=== PATIENT | female | born 1955 | race Caucasian/White ===

== ENCOUNTER 2022-01-27 11:58 | Inpatient (IN) ==
[~2022-01-27 11:58] MED LIST: DEXTROSE 10% 250 ML BAG IV PRN; GLUCAGON 1 MG VIAL IM PRN
[2022-01-27] MEDS ORDERED: CLORAZEPATE 3.75 MG TABLET PO PRN (12:38)
[2022-01-27 14:13] LABS: Basophils % 0.4 % (0.0-0.8); Eosinophils # 0.3 10*3/uL (0.0-0.87); Eosinophils % 2.5 % (0.00-10.9); Hematocrit 41.8 VOL% (35.7-47.0); Hemoglobin 13.8 GM/DL (12.0-16.0); Immature Granulocytes % 0.1 %; Immature Granulocytes Absolute 0.01 #; Lymphocytes # 4.4 10*3/uL (1.4-4.0); Lymphocytes % 43.7 % (21.3-54.2); Mean Platelet Volume 11.8 FL (9.6-12.0); Monocytes # 0.5 10*3/uL (0.11-0.8); Monocytes % 5.4 % (1.7-12.7); Neutrophils % 47.9 % (38.7-73.9); Platelet Count 187 T/CUMM (130-400); Red Blood Count 4.31 MC/CUMM (3.8-5.5); Red Cell Distribution Width 12.8 % (9.3-17.3)
[2022-01-27 14:33] LABS: Albumin 3.7 G/DL (3.4-5.0); Bilirubin,Total 0.4 MG/DL (0.20-1.00); Calcium 9.2 MG/DL (8.5-10.1); Osmolality,Calculated 279.5 MOS/KG (273-304); Potassium 3.9 MMOL/L (3.5-5.1); Total Protein 8.7 G/DL (6.4-8.2)
[2022-01-27 14:50] LABS: Platelet Estimate Adequate
[2022-01-27] MEDS: CHLORHEXIDINE 4% SOLN 118 ML BOTTLE TOP SCH ×2 (15:10→21:16)
[2022-01-27 15:17] LABS: Arterial Base Excess iSTAT 2 MMOL/L (-2.5-2.5); Arterial Bicarbonate iSTAT 26.4 MMOL/L (20-26); Arterial O2 Saturation iSTAT 96 % (95-100); Arterial PCO2 iSTAT 40 MM HG (35-48); Arterial PO2 iSTAT 79 MM HG (80-95); Arterial Total CO2 iSTAT 28 MMO/L (23-27); Arterial pH iSTAT 7.433 (7.35-7.45)
[2022-01-27] MEDS: SODIUM CHLORIDE 0.9% 1,000 ML IV SCH (15:44)
[2022-01-27] MEDS ORDERED: diphenhydrAMINE CAP 25 MG CAPSULE PO PRN (20:45)
[2022-01-27] MEDS: CHLORHEXIDINE 0.12% ORAL RINSE 60 ML BOTTLE SWISH/SPIT SCH (21:14)
[2022-01-28] MEDS ORDERED: VANCOMYCIN 1,000 MG VIAL ONE (04:14)
[2022-01-28] MEDS ORDERED: PAPAVERINE 60 MG/2 ML VIAL ONE (04:14)
[2022-01-28] MEDS ORDERED: VANCOMYCIN 500 MG VIAL ONE (04:14)
[2022-01-28] MEDS ORDERED: DIAZEPAM 5 MG TABLET PO ONE (05:30)
[2022-01-28] MEDS ORDERED: FAMOTIDINE 20 MG TABLET PO ONE (05:30)
[2022-01-28] MEDS ORDERED: MIDAZOLAM 10 MG/2 ML VIAL ONE ×4 (05:40→09:36)
[2022-01-28] MEDS ORDERED: SUFentanil 250 MCG/5 ML AMP ONE ×4 (05:41→05:42)
[2022-01-28] MEDS: CHLORHEXIDINE 4% SOLN 118 ML BOTTLE TOP SCH (05:49)
[2022-01-28] MEDS ORDERED: VECURONIUM 10 MG VIAL IV ONE ×3 (05:55→09:36)
[2022-01-28] MEDS ORDERED: ETOMIDATE 40 MG/20 ML VIAL IV ONE (05:55)
[2022-01-28] MEDS ORDERED: SODIUM CHLORIDE 0.9% 0 ML IV ONE (05:55)
[2022-01-28] MEDS ORDERED: SEVOFLURANE 1 UNIT/15 MINUTE INH ONE ×5 (05:55→10:42)
[2022-01-28] MEDS ORDERED: SODIUM CHLORIDE 0.9% 100 ML IV ONE ×2 (05:55→10:41)
[2022-01-28] MEDS ORDERED: LIDOCAINE 2% 5 ML VIAL ONE ×2 (05:55→10:42)
[2022-01-28] MEDS ORDERED: PHENYLEPHRINE DRIP 20 MG/250 ML PREMIX IV ONE (05:55)
[2022-01-28] MEDS ORDERED: PHENYLEPHRINE 1 MG/10 ML SYRINGE IV ONE (05:55)
[2022-01-28] MEDS ORDERED: CEFUROXIME INJ 1,500 MG in SODIUM CHLORIDE 0.9% 100 ML IV ONE (06:00)
[2022-01-28] MEDS ORDERED: EPINEPHrine 1 MG/ML VIAL ONE (06:04)
[2022-01-28] MEDS ORDERED: MINERAL OIL/PETROLATUM OPH OINT 3.5 GM TUBE ONE (06:06)
[2022-01-28] MEDS ORDERED: ePHEDrine 50 MG/ML VIAL ONE (07:17)
[2022-01-28] MEDS ORDERED: LIDOCAINE 100 MG/5 ML SYRINGE ONE (07:30)
[2022-01-28] MEDS ORDERED: ATROPINE 1 MG/10 ML SYRINGE ONE (07:30)
[2022-01-28] MEDS ORDERED: EPINEPHrine 1 MG/10 ML SYRINGE ONE (07:30)
[2022-01-28] MEDS ORDERED: SODIUM BICARBONATE 50 MEQ/50 ML SYRINGE IV ONE (07:31)
[2022-01-28] MEDS ORDERED: CALCIUM CHLORIDE 1,000 MG/10 ML SYRINGE IV ONE (07:32)
[2022-01-28] MEDS ORDERED: PHENYLEPHRINE DRIP 40 MG/250 ML PREMIX IV ONE (07:32)
[2022-01-28] MEDS ORDERED: POTASSIUM CHLORIDE RIDER 20 MEQ/100 ML PREMIX IV ONE (07:32)
[2022-01-28 07:34] LABS: ABG Base Excess 0.7 MMOL/L (-2.5-2.5); ABG HCO3 25.1 MMOL/L (20-26); ABG Oxygen Saturation 99.7 % (95-100); ABG PCO2 41.6 MM HG (35-48); ABG PH 7.398 (7.35-7.45); ABG TCO2 22.7 MMOL/L (23-27); Glucose Heart Surgery 120 MG/DL (74-106); Hematocrit Heart Surgery 36.5 PERCENT (37-47); Hemoglobin Heart Surgery 11.9 G/DL (12.0-16.0); Ionized Calcium Arterial 1.11 MMOL/L (1.21-1.46); PCO2 Patient Temp Arterial 41.6 MMHG; PH Patient Temp Arterial 7.398; Patient Temperature 37 CELCIUS; Sodium Heart/CVR 140 MMOL/L (135-145)
[2022-01-28 07:38] LABS: Bilirubin,Urine Negative (Negative); Blood, Urine Negative (Negative); Glucose,Urine (UA) Negative (Negative); Ketones,Urine Negative (Negative); Nitrite,Urine Negative (Negative); Protein,Urine Negative (Negative); Urine Appearance Clear (Clear); Urine Color Yellow (Yellow); Urine Urobilinogen 0.2 eU/dL (<2.0)
[2022-01-28 07:41] LABS: RBC,Urine 1 /HPF (0-4)
[2022-01-28] MEDS ORDERED: NITROPRUSSIDE 50 MG/2 ML VIAL ONE (07:49)
[2022-01-28] MEDS ORDERED: ALBUMIN 5% 12.5 GM/250 ML VIAL IV ONE ×2 (07:51→10:43)
[2022-01-28] MEDS ORDERED: SODIUM CHLORIDE 0.9% 250 ML IV ONE (08:13)
[2022-01-28] MEDS ORDERED: SODIUM CHLORIDE 0.9% 1,000 ML IV ONE ×2 (08:13→10:38)
[2022-01-28] MEDS ORDERED: LACTATED RINGERS 1,000 ML IV ONE ×2 (08:13→10:38)
[2022-01-28] MEDS ORDERED: HEPARIN/NACL 0.9% 2 UNITS/ML 1,000 UNIT/500 ML BAG IV ONE (08:14)
[2022-01-28 09:06] LABS: Hemoglobin Heart Surgery 7.7 G/DL (12.0-16.0); PCO2 Patient Temp Venous 38.4 MM HG; PH Patient Temp Venous 7.43; PO2 Patient Temp Venous 42.5 MM HG; VBG Base Excess 1.3 MEQ/L (0-4); VBG HCO3 25.4 MEQ/L (24-28); VBG Oxygen Saturation 82.7 %; VBG PCO2 42.3 MMHG (41-51); VBG PH 7.4; VBG PO2 48.8 MMHG (17-40); VBG Total CO2 24.6 MMOL/L
[2022-01-28 09:08] LABS: Potassium Heart/CVR 6.1 MMOL/L (3.5-5.1)
[2022-01-28 09:35] LABS: Hematocrit Heart Surgery 28.3 PERCENT (37-47); Hemoglobin Heart Surgery 9.1 G/DL (12.0-16.0); PCO2 Patient Temp Venous 38.9 MM HG; PH Patient Temp Venous 7.42; PO2 Patient Temp Venous 39.9 MM HG; Potassium Heart/CVR 6.3 MMOL/L (3.5-5.1); VBG HCO3 25.1 MEQ/L (24-28); VBG Oxygen Saturation 81.4 %; VBG PH 7.377; VBG Total CO2 24.5 MMOL/L
[2022-01-28] MEDS ORDERED: CALCIUM CHLORIDE 1,000 MG/10 ML VIAL IV ONE ×2 (10:17→11:14)
[2022-01-28] MEDS ORDERED: propofoL 200 MG/20 ML VIAL IV ONE (10:17)
[2022-01-28 10:19] LABS: ABG Base Excess -1.3 MMOL/L (-2.5-2.5); ABG HCO3 23.3 MMOL/L (20-26); ABG Oxygen Saturation 99.6 % (95-100); ABG PCO2 39.3 MM HG (35-48); ABG PH 7.385 (7.35-7.45); ABG TCO2 21.7 MMOL/L (23-27); Glucose Heart Surgery 264 MG/DL (74-106); Hematocrit Heart Surgery 27.8 PERCENT (37-47); Ionized Calcium Arterial 1.25 MMOL/L (1.21-1.46); PCO2 Patient Temp Arterial 39.3 MMHG; PH Patient Temp Arterial 7.385; Patient Temperature 37 CELCIUS; Potassium Heart/CVR 4.9 MMOL/L (3.5-5.1); Sodium Heart/CVR 135 MMOL/L (135-145)
[2022-01-28] MEDS ORDERED: MAGNESIUM SULFATE 5 GM/10 ML VIAL IV ONE (10:42)
[2022-01-28] MEDS ORDERED: DEXTROSE 5% KCL 20 MEQ 20 MEQ/1,000 ML BAG IV ONE (10:42)
[2022-01-28] MEDS ORDERED: ALBUMIN 25% 25 GM/100 ML VIAL IV ONE (10:42)
[2022-01-28] MEDS ORDERED: methylPREDNISolone SOD SUC 1,000 MG/8 ML VIAL ONE (10:42)
[2022-01-28] MEDS ORDERED: PROTAMINE SULFATE 250 MG/25 ML VIAL IV ONE (10:43)
[2022-01-28] MEDS ORDERED: HEPARIN 10,000 UNIT/10 ML VIAL ONE (10:43)
[2022-01-28] MEDS ORDERED: SODIUM BICARBONATE 50 MEQ/50 ML VIAL IV ONE (10:44)
[2022-01-28] MEDS ORDERED: MANNITOL 12.5 GM/50 ML VIAL IV ONE (10:44)
[2022-01-28] MEDS ORDERED: FUROSEMIDE 20 MG/2 ML VIAL ONE (10:44)
[2022-01-28] MEDS ORDERED: MIDAZOLAM 10 MG/2 ML VIAL IV PRN (11:52)
[2022-01-28] MEDS ORDERED: NITROPRUSSIDE 100 MG in DEXTROSE 5% 250 ML IV PRN (11:52)
[2022-01-28] MEDS ORDERED: MIDAZOLAM 2 MG/2 ML VIAL IV PRN (11:52)
[2022-01-28] MEDS ORDERED: MORPHINE 2 MG/1 ML SYRINGE IV PRN (11:52)
[2022-01-28] MEDS ORDERED: MAGNESIUM SULF RIDER 4 GM/100 ML PREMIX IV PRN (11:52)
[2022-01-28] MEDS ORDERED: MAGNESIUM SULF RIDER 2 GM/50 ML PREMIX IV PRN (11:52)
[2022-01-28] MEDS ORDERED: LACTATED RINGERS 250 ML IV PRN (11:52)
[2022-01-28] MEDS ORDERED: INSULIN REGULAR 100 UNIT/ML IV ONE (11:52)
[2022-01-28] MEDS ORDERED: ACETAMINOPHEN 650 MG SUPP RECTAL PRN (11:52)
[2022-01-28] MEDS ORDERED: CHLORHEXIDINE 4% SOLN 118 ML BOTTLE TOP PRN (11:52)
[2022-01-28] MEDS ORDERED: DEXTROSE 10% 250 ML BAG IV PRN ×2 (11:52)
[2022-01-28] MEDS ORDERED: VECURONIUM 10 MG VIAL IV PRN ×2 (11:52)
[2022-01-28] MEDS ORDERED: PHENYLEPHRINE DRIP 40 MG/250 ML PREMIX IV PRN (11:52)
[2022-01-28] MEDS ORDERED: ONDANSETRON 4 MG/2 ML VIAL IV PRN (11:52)
[2022-01-28] MEDS ORDERED: SODIUM CHLORIDE 0.45% 1,000 ML IV SCH ×2 (11:52)
[2022-01-28] MEDS ORDERED: INSULIN REGULAR 100 UNIT/ML IV PRN (11:52)
[2022-01-28] MEDS ORDERED: CALCIUM CHLORIDE 1,000 MG/10 ML SYRINGE IV PRN (11:52)
[2022-01-28] MEDS ORDERED: MORPHINE 10 MG/1 ML VIAL IV PRN (11:52)
[2022-01-28] MEDS ORDERED: POTASSIUM CHLORIDE RIDER 10 MEQ/100 ML PREMIX IV PRN (11:52)
[2022-01-28] MEDS ORDERED: PROTAMINE SULFATE 50 MG/5 ML VIAL IV ONE ×2 (11:54→11:55)
[2022-01-28 11:58] LABS: ABG Base Excess -1.9 MMOL/L (-2.5-2.5); ABG HCO3 22.8 MMOL/L (20-26); ABG Oxygen Saturation 99.1 % (95-100); ABG PH 7.411 (7.35-7.45); ABG TCO2 20.3 MMOL/L (23-27); Glucose Heart Surgery 205 MG/DL (74-106); Hemoglobin Heart Surgery 9.7 G/DL (12.0-16.0); Potassium Heart/CVR 3.5 MMOL/L (3.5-5.1)
[2022-01-28 12:04] LABS: Basophils # 0.1 10*3/uL (0.0-0.2); Basophils % 0.3 % (0.0-0.8); Eosinophils # 0.1 10*3/uL (0.0-0.87); Eosinophils % 0.8 % (0.00-10.9); Hematocrit 28.9 VOL% (35.7-47.0); Hemoglobin 9.4 GM/DL (12.0-16.0); Immature Granulocytes % 0.9 %; Immature Granulocytes Absolute 0.14 #; Lymphocytes % 18.8 % (21.3-54.2); Mean Corpuscular HGB Conc 32.5 GM/DL (32-36); Mean Platelet Volume 11.9 FL (9.6-12.0); Neutrophils % 73.2 % (38.7-73.9); Platelet Count 163 T/CUMM (130-400); Red Blood Count 2.92 MC/CUMM (3.8-5.5); Red Cell Distribution Width 13.1 % (9.3-17.3); White Blood Count 15.8 T/CUMM (4-12)
[2022-01-28 12:12] LABS: INR 1.1; PT Patient Result 11.9 SECS (10.1-12.1); Partial Thromboplastin Time 30.5 SECS (23.7-32.9)
[2022-01-28] MEDS: POTASSIUM CHLORIDE RIDER 20 MEQ/100 ML PREMIX IV PRN ×2 (12:14→14:52)
[2022-01-28 12:19] LABS: CKMB % 5.4 %
[2022-01-28] MEDS: CHLORHEXIDINE 0.12% ORAL RINSE 60 ML BOTTLE SWISH/SPIT SCH (12:21)
[2022-01-28] MEDS: SODIUM CHLORIDE 0.9% 1,000 ML IV SCH (12:21)
[2022-01-28 12:30] LABS: High Sensitive Troponin I* 3819.9 ng/L (0-54)
[2022-01-28] MEDS: LACTATED RINGERS 1,000 ML IV PRN ×2 (12:30→16:49)
[2022-01-28 12:38] LABS: Albumin 3.4 G/DL (3.4-5.0); Bilirubin,Total 1.5 MG/DL (0.20-1.00); Calcium 10.6 MG/DL (8.5-10.1); Osmolality,Calculated 287.1 MOS/KG (273-304); Potassium 3.8 MMOL/L (3.5-5.1); Total Protein 5.8 G/DL (6.4-8.2)
[2022-01-28 12:58] LABS: ABG Base Excess -2.9 MMOL/L (-2.5-2.5); ABG Oxygen Saturation 98.9 % (95-100); ABG PH 7.421 (7.35-7.45); ABG TCO2 19.1 MMOL/L (23-27); Glucose Heart Surgery 182 MG/DL (74-106); Hematocrit Heart Surgery 28.8 PERCENT (37-47); Hemoglobin Heart Surgery 9.3 G/DL (12.0-16.0); Potassium Heart/CVR 4.5 MMOL/L (3.5-5.1)
[2022-01-28 14:41] LABS: ABG Base Excess -2.5 MMOL/L (-2.5-2.5); ABG HCO3 22.3 MMOL/L (20-26); ABG Oxygen Saturation 98.6 % (95-100); ABG PCO2 31.7 MM HG (35-48); ABG PH 7.429 (7.35-7.45); ABG TCO2 18.9 MMOL/L (23-27); Glucose Heart Surgery 192 MG/DL (74-106); Hematocrit Heart Surgery 33.4 PERCENT (37-47); Hemoglobin Heart Surgery 10.8 G/DL (12.0-16.0); Potassium Heart/CVR 4.1 MMOL/L (3.5-5.1)
[2022-01-28] MEDS: ALBUMIN 5% 12.5 GM/250 ML VIAL IV PRN ×2 (15:12→15:48)
[2022-01-28] MEDS: INSULIN REGULAR DRIP 100 ML IV SCH ×2 (15:21→21:53)
[2022-01-28 17:42] LABS: ABG Base Excess -2.1 MMOL/L (-2.5-2.5); ABG HCO3 22.7 MMOL/L (20-26); ABG Oxygen Saturation 98.4 % (95-100); ABG PCO2 39.2 MM HG (35-48); ABG PH 7.374 (7.35-7.45); ABG TCO2 20.8 MMOL/L (23-27); Glucose Heart Surgery 185 MG/DL (74-106); Hematocrit Heart Surgery 30.9 PERCENT (37-47); Potassium Heart/CVR 4.3 MMOL/L (3.5-5.1)
[2022-01-28] MEDS: CEFUROXIME INJ 1,500 MG in SODIUM CHLORIDE 0.9% 100 ML IV SCH (18:05)
[2022-01-28] MEDS: INSULIN REGULAR 100 UNIT/ML SUBCUT SCH (20:10)
[2022-01-28 20:22] LABS: ABG Base Excess -3.5 MMOL/L (-2.5-2.5); ABG HCO3 21.5 MMOL/L (20-26); ABG Oxygen Saturation 97.5 % (95-100); ABG PH 7.306 (7.35-7.45); Glucose Heart Surgery 180 MG/DL (74-106); Hematocrit Heart Surgery 32.7 PERCENT (37-47); Hemoglobin Heart Surgery 10.6 G/DL (12.0-16.0); Potassium Heart/CVR 4.2 MMOL/L (3.5-5.1)
[2022-01-28 20:50] LABS: CKMB % 7.5 %
[2022-01-28 20:54] LABS: High Sensitive Troponin I* 6099.1 ng/L (0-54)
[2022-01-28] MEDS ORDERED: CHLORHEXIDINE 0.12% ORAL RINSE 60 ML BOTTLE SWISH/SPIT SCH (21:00)
[2022-01-28 21:36] LABS: ABG Base Excess -4.9 MMOL/L (-2.5-2.5); ABG HCO3 20.3 MMOL/L (20-26); ABG Oxygen Saturation 95.7 % (95-100); ABG PCO2 45.7 MM HG (35-48); ABG PH 7.285 (7.35-7.45); ABG PO2 91.5 MM HG (80-95); Glucose Heart Surgery 205 MG/DL (74-106); Hematocrit Heart Surgery 31.6 PERCENT (37-47); Hemoglobin Heart Surgery 10.2 G/DL (12.0-16.0); Potassium Heart/CVR 4.2 MMOL/L (3.5-5.1)
[2022-01-28 23:11] LABS: ABG Base Excess -4.1 MMOL/L (-2.5-2.5); ABG Oxygen Saturation 98.6 % (95-100); ABG PCO2 31.4 MM HG (35-48); ABG PH 7.407 (7.35-7.45); Glucose Heart Surgery 214 MG/DL (74-106); Hematocrit Heart Surgery 30.9 PERCENT (37-47); Potassium Heart/CVR 4.3 MMOL/L (3.5-5.1)
[2022-01-29] MEDS: INSULIN REGULAR 100 UNIT/ML SUBCUT SCH ×5 (00:14→21:04)
[2022-01-29 00:30] LABS: ABG Base Excess -4.7 MMOL/L (-2.5-2.5); ABG HCO3 20.5 MMOL/L (20-26); ABG Oxygen Saturation 97.4 % (95-100); ABG PCO2 42.1 MM HG (35-48); ABG PH 7.314 (7.35-7.45); ABG TCO2 18.6 MMOL/L (23-27); Glucose Heart Surgery 200 MG/DL (74-106); Hematocrit Heart Surgery 43.5 PERCENT (37-47); Hemoglobin Heart Surgery 14.2 G/DL (12.0-16.0); Potassium Heart/CVR 3.9 MMOL/L (3.5-5.1)
[2022-01-29 02:12] LABS: ABG HCO3 21.9 MMOL/L (20-26); ABG Oxygen Saturation 96.6 % (95-100); ABG PO2 91.6 MM HG (80-95); ABG TCO2 20.7 MMOL/L (23-27); Glucose Heart Surgery 163 MG/DL (74-106); Hematocrit Heart Surgery 31.4 PERCENT (37-47); Hemoglobin Heart Surgery 10.2 G/DL (12.0-16.0); Potassium Heart/CVR 3.9 MMOL/L (3.5-5.1)
[2022-01-29] MEDS: POTASSIUM CHLORIDE RIDER 20 MEQ/100 ML PREMIX IV PRN (02:17)
[2022-01-29 03:24] LABS: ABG Base Excess -2.6 MMOL/L (-2.5-2.5); ABG HCO3 22.2 MMOL/L (20-26); ABG Oxygen Saturation 96.7 % (95-100); ABG PCO2 41.3 MM HG (35-48); ABG PO2 91.5 MM HG (80-95); ABG TCO2 20.8 MMOL/L (23-27); Glucose Heart Surgery 150 MG/DL (74-106); Hematocrit Heart Surgery 31.3 PERCENT (37-47); Hemoglobin Heart Surgery 10.1 G/DL (12.0-16.0); Potassium Heart/CVR 4.3 MMOL/L (3.5-5.1)
[2022-01-29 03:26] LABS: Basophils % 0.2 % (0.0-0.8); Eosinophils # 0.1 10*3/uL (0.0-0.87); Eosinophils % 0.3 % (0.00-10.9); Hematocrit 30.7 VOL% (35.7-47.0); Immature Granulocytes % 0.5 %; Immature Granulocytes Absolute 0.09 #; Lymphocytes # 3.1 10*3/uL (1.4-4.0); Lymphocytes % 15.6 % (21.3-54.2); Mean Corpuscular HGB Conc 32.6 GM/DL (32-36); Mean Corpuscular Volume 97.8 FL (87-102); Mean Platelet Volume 11.6 FL (9.6-12.0); Monocytes # 0.9 10*3/uL (0.11-0.8); Monocytes % 4.8 % (1.7-12.7); Neutrophils % 78.6 % (38.7-73.9); Platelet Count 156 T/CUMM (130-400); Red Blood Count 3.14 MC/CUMM (3.8-5.5); Red Cell Distribution Width 14.4 % (9.3-17.3); White Blood Count 19.7 T/CUMM (4-12)
[2022-01-29 03:46] LABS: Albumin 3.6 G/DL (3.4-5.0); Bilirubin,Direct 0.21 MG/DL (0.0-0.20); Bilirubin,Total 0.6 MG/DL (0.20-1.00); Calcium 8.8 MG/DL (8.5-10.1); Potassium 4.4 MMOL/L (3.5-5.1); Total Protein 6.5 G/DL (6.4-8.2)
[2022-01-29 04:16] LABS: High Sensitive Troponin I* 9513.4 ng/L (0-54)
[2022-01-29 04:18] LABS: ABG Base Excess -2.6 MMOL/L (-2.5-2.5); ABG HCO3 22.2 MMOL/L (20-26); ABG Oxygen Saturation 96.7 % (95-100); ABG PCO2 43.1 MM HG (35-48); ABG PH 7.338 (7.35-7.45); ABG PO2 93.1 MM HG (80-95); ABG TCO2 21.2 MMOL/L (23-27); Glucose Heart Surgery 149 MG/DL (74-106); Hematocrit Heart Surgery 30.7 PERCENT (37-47); Hemoglobin Heart Surgery 9.9 G/DL (12.0-16.0); Potassium Heart/CVR 4.3 MMOL/L (3.5-5.1)
[2022-01-29] MEDS: CEFUROXIME INJ 1,500 MG in SODIUM CHLORIDE 0.9% 100 ML IV SCH (05:32)
[2022-01-29] MEDS ORDERED: LORATADINE 10 MG TABLET PO PRN (06:16)
[2022-01-29] MEDS: LEVOTHYROXINE 75 MCG TABLET PO SCH (06:31)
[2022-01-29] MEDS ORDERED: MAGNESIUM HYDROXIDE SUSP 30 ML UDCUP PO PRN (07:05)
[2022-01-29] MEDS ORDERED: ALUMINUM/MAGNES/SIMETH MAX STR 30 ML UDCUP PO PRN (07:05)
[2022-01-29] MEDS ORDERED: MAGNESIUM SULF RIDER 4 GM/100 ML PREMIX IV PRN (07:05)
[2022-01-29] MEDS ORDERED: DEXTROSE 10% 250 ML BAG IV PRN (07:05)
[2022-01-29] MEDS ORDERED: oxyCODONE/ACETAMINOPHEN 5-325 MG TABLET PO PRN (07:05)
[2022-01-29] MEDS ORDERED: POTASSIUM CHLORIDE 20 MEQ TABLET PO PRN (07:05)
[2022-01-29] MEDS ORDERED: ZALEPLON 5 MG CAPSULE PO PRN (07:05)
[2022-01-29] MEDS ORDERED: MAGNESIUM SULF RIDER 2 GM/50 ML PREMIX IV PRN (07:05)
[2022-01-29] MEDS ORDERED: DEXTROSE 50% 25 GM/50 ML VIAL IV PRN (07:05)
[2022-01-29] MEDS ORDERED: ONDANSETRON 4 MG/2 ML VIAL IV PRN (07:05)
[2022-01-29] MEDS ORDERED: GLUCAGON 1 MG VIAL IM PRN ×2 (07:05)
[2022-01-29] MEDS: SODIUM CHLOR 0.45% KCL 20 MEQ 20 MEQ/1,000 ML BAG IV SCH (08:11)
[2022-01-29] MEDS: KETOROLAC 30 MG/1 ML VIAL IV SCH ×3 (08:11→21:05)
[2022-01-29] MEDS: NON-FORMULARY MEDICATION (Lysine 500 mg Tablet) PO SCH (08:40)
[2022-01-29] MEDS ORDERED: amLODIPine 5 MG TABLET PO SCH (09:00)
[2022-01-29] MEDS: DOCUSATE SODIUM 100 MG CAPSULE PO SCH (09:10)
[2022-01-29] MEDS: ASPIRIN EC 81 MG TABLET PO SCH (09:10)
[2022-01-29] MEDS: CYANOCOBALAMIN 500 MCG TABLET PO SCH (09:10)
[2022-01-29] MEDS: MULTIVITAMIN (CENTRUM) TABLET PO SCH (09:10)
[2022-01-29] MEDS: ASCORBIC ACID 500 MG TABLET PO SCH (09:10)
[2022-01-29] MEDS: FERROUS SULFATE 325 MG TABLET PO SCH (09:10)
[2022-01-29] MEDS: CHOLECALCIFEROL 1,000 UNIT TABLET PO SCH (09:10)
[2022-01-29] MEDS: CHLORHEXIDINE 0.12% ORAL RINSE 60 ML BOTTLE SWISH/SPIT SCH ×2 (09:11→21:05)
[2022-01-29] MEDS: PANTOPRAZOLE 40 MG TABLET PO SCH (09:11)
[2022-01-29] MEDS: carvediloL 3.125 MG TABLET PO SCH ×2 (09:13→21:04)
[2022-01-29] MEDS: ROSUVASTATIN 20 MG TABLET PO SCH (21:04)
[2022-01-30] MEDS: KETOROLAC 30 MG/1 ML VIAL IV SCH ×4 (00:32→20:25)
[2022-01-30] MEDS: INSULIN REGULAR 100 UNIT/ML SUBCUT SCH ×6 (00:32→20:25)
[2022-01-30 05:14] LABS: Basophils % 0.2 % (0.0-0.8); Eosinophils # 0.1 10*3/uL (0.0-0.87); Eosinophils % 0.4 % (0.00-10.9); Hematocrit 26.3 VOL% (35.7-47.0); Hemoglobin 8.1 GM/DL (12.0-16.0); Immature Granulocytes % 0.6 %; Immature Granulocytes Absolute 0.11 #; Lymphocytes # 6.2 10*3/uL (1.4-4.0); Lymphocytes % 33.1 % (21.3-54.2); Mean Corpuscular HGB Conc 30.8 GM/DL (32-36); Mean Corpuscular Volume 103.1 FL (87-102); Mean Platelet Volume 12.5 FL (9.6-12.0); Monocytes # 1.4 10*3/uL (0.11-0.8); Monocytes % 7.6 % (1.7-12.7); Neutrophils % 58.1 % (38.7-73.9); Platelet Count 130 T/CUMM (130-400); Red Blood Count 2.55 MC/CUMM (3.8-5.5); Red Cell Distribution Width 14.3 % (9.3-17.3); White Blood Count 18.7 T/CUMM (4-12)
[2022-01-30 05:40] LABS: Alanine Aminotransferase 97 U/L (13-56); Albumin 3.1 G/DL (3.4-5.0); Alkaline Phosphatase 55 U/L (45-117); Aspartate Amino Transferase 137 U/L (0-37); Bilirubin,Total < 0.39 MG/DL (0.20-1.00); Blood Urea Nitrogen 19 MG/DL (7-18); CKMB % 4.53 %; Calcium 8.5 MG/DL (8.5-10.1); Carbon Dioxide 28 MMOL/L (21-32); Chloride 106 MMOL/L (98-107); Glucose 116 MG/DL (74-106); Osmolality,Calculated 277.7 MOS/KG (273-304); Potassium 4.2 MMOL/L (3.5-5.1); Sodium 138 MMOL/L (136-145); Total Protein 6.1 G/DL (6.4-8.2)
[2022-01-30 05:41] LABS: Bilirubin,Indirect 0.2 MG/DL (0.0-1.0)
[2022-01-30] MEDS: LEVOTHYROXINE 75 MCG TABLET PO SCH (05:59)
[2022-01-30] MEDS ORDERED: FUROSEMIDE 40 MG/4 ML VIAL IV ONE (06:00)
[2022-01-30] MEDS: SODIUM CHLOR 0.45% KCL 20 MEQ 20 MEQ/1,000 ML BAG IV SCH (06:27)
[2022-01-30] MEDS: ASPIRIN EC 81 MG TABLET PO SCH (09:20)
[2022-01-30] MEDS: ASCORBIC ACID 500 MG TABLET PO SCH (09:21)
[2022-01-30] MEDS: CYANOCOBALAMIN 500 MCG TABLET PO SCH (09:21)
[2022-01-30] MEDS: FERROUS SULFATE 325 MG TABLET PO SCH (09:21)
[2022-01-30] MEDS: PANTOPRAZOLE 40 MG TABLET PO SCH (09:22)
[2022-01-30] MEDS: CHOLECALCIFEROL 1,000 UNIT TABLET PO SCH (09:22)
[2022-01-30] MEDS: carvediloL 3.125 MG TABLET PO SCH ×2 (09:22→20:24)
[2022-01-30] MEDS: MULTIVITAMIN (CENTRUM) TABLET PO SCH (09:22)
[2022-01-30] MEDS: NON-FORMULARY MEDICATION (Lysine 500 mg Tablet) PO SCH (09:23)
[2022-01-30] MEDS: DOCUSATE SODIUM 100 MG CAPSULE PO SCH (09:23)
[2022-01-30] MEDS: CHLORHEXIDINE 0.12% ORAL RINSE 60 ML BOTTLE SWISH/SPIT SCH ×2 (09:39→20:24)
[2022-01-30] MEDS: ROSUVASTATIN 20 MG TABLET PO SCH (20:24)
[2022-01-31] MEDS: INSULIN REGULAR 100 UNIT/ML SUBCUT SCH ×3 (00:36→08:35)
[2022-01-31] MEDS: KETOROLAC 30 MG/1 ML VIAL IV SCH ×4 (00:58→20:31)
[2022-01-31 04:43] LABS: Basophils % 0.3 % (0.0-0.8); Eosinophils # 0.3 10*3/uL (0.0-0.87); Eosinophils % 2.2 % (0.00-10.9); Hematocrit 24.6 VOL% (35.7-47.0); Hemoglobin 7.8 GM/DL (12.0-16.0); Immature Granulocytes % 0.5 %; Immature Granulocytes Absolute 0.08 #; Lymphocytes # 4.7 10*3/uL (1.4-4.0); Lymphocytes % 32.1 % (21.3-54.2); Mean Corpuscular HGB Conc 31.7 GM/DL (32-36); Mean Corpuscular Volume 100.8 FL (87-102); Mean Platelet Volume 12.6 FL (9.6-12.0); Monocytes # 1.1 10*3/uL (0.11-0.8); Monocytes % 7.3 % (1.7-12.7); Neutrophils % 57.6 % (38.7-73.9); Platelet Count 120 T/CUMM (130-400); Red Blood Count 2.44 MC/CUMM (3.8-5.5); Red Cell Distribution Width 13.8 % (9.3-17.3); White Blood Count 14.8 T/CUMM (4-12)
[2022-01-31 05:08] LABS: Albumin 2.8 G/DL (3.4-5.0); Bilirubin,Direct 0.11 MG/DL (0.0-0.20); Bilirubin,Indirect 0.3 MG/DL (0.0-1.0); Bilirubin,Total 0.4 MG/DL (0.20-1.00); CKMB % 1.89 %; Calcium 8.7 MG/DL (8.5-10.1); High Sensitive Troponin I* 7147.7 ng/L (0-54); Osmolality,Calculated 275.1 MOS/KG (273-304); Potassium 3.7 MMOL/L (3.5-5.1); Total Protein 6.1 G/DL (6.4-8.2)
[2022-01-31] MEDS: LEVOTHYROXINE 75 MCG TABLET PO SCH (06:01)
[2022-01-31] MEDS ORDERED: FUROSEMIDE 40 MG/4 ML VIAL IV ONE (08:30)
[2022-01-31] MEDS: carvediloL 3.125 MG TABLET PO SCH ×2 (09:26→20:23)
[2022-01-31] MEDS: FERROUS SULFATE 325 MG TABLET PO SCH (09:27)
[2022-01-31] MEDS: CYANOCOBALAMIN 500 MCG TABLET PO SCH (09:27)
[2022-01-31] MEDS: MULTIVITAMIN (CENTRUM) TABLET PO SCH (09:28)
[2022-01-31] MEDS: DOCUSATE SODIUM 100 MG CAPSULE PO SCH (09:28)
[2022-01-31] MEDS: PANTOPRAZOLE 40 MG TABLET PO SCH (09:28)
[2022-01-31] MEDS: CHOLECALCIFEROL 1,000 UNIT TABLET PO SCH (09:29)
[2022-01-31] MEDS: ASCORBIC ACID 500 MG TABLET PO SCH (09:29)
[2022-01-31] MEDS: CHLORHEXIDINE 0.12% ORAL RINSE 60 ML BOTTLE SWISH/SPIT SCH ×2 (09:29→20:24)
[2022-01-31] MEDS: ASPIRIN EC 81 MG TABLET PO SCH (09:29)
[2022-01-31] MEDS: NON-FORMULARY MEDICATION (Lysine 500 mg Tablet) PO SCH (12:47)
[2022-01-31] MEDS: ROSUVASTATIN 20 MG TABLET PO SCH (20:23)
[2022-02-01] MEDS: KETOROLAC 30 MG/1 ML VIAL IV SCH (02:15)
[2022-02-01 05:00] LABS: Basophils % 0.2 % (0.0-0.8); Eosinophils # 0.5 10*3/uL (0.0-0.87); Eosinophils % 4.2 % (0.00-10.9); Hematocrit 24.1 VOL% (35.7-47.0); Hemoglobin 7.7 GM/DL (12.0-16.0); Immature Granulocytes % 0.4 %; Immature Granulocytes Absolute 0.05 #; Lymphocytes # 3.6 10*3/uL (1.4-4.0); Lymphocytes % 28.6 % (21.3-54.2); Mean Corpuscular Volume 99.2 FL (87-102); Mean Platelet Volume 12.3 FL (9.6-12.0); Monocytes # 0.9 10*3/uL (0.11-0.8); Monocytes % 6.9 % (1.7-12.7); Neutrophils % 59.7 % (38.7-73.9); Platelet Count 150 T/CUMM (130-400); Red Blood Count 2.43 MC/CUMM (3.8-5.5); Red Cell Distribution Width 13.5 % (9.3-17.3); White Blood Count 12.7 T/CUMM (4-12)
[2022-02-01 05:13] LABS: Calcium 8.1 MG/DL (8.5-10.1); Osmolality,Calculated 276.8 MOS/KG (273-304); Potassium 3.6 MMOL/L (3.5-5.1)
[2022-02-01] MEDS: LEVOTHYROXINE 75 MCG TABLET PO SCH (05:47)
[2022-02-01] MEDS ORDERED: SODIUM CHLORIDE 0.9% 1,000 ML IV PRN (08:01)
[2022-02-01] MEDS ORDERED: FUROSEMIDE 40 MG/4 ML VIAL IV ONE ×3 (08:17→20:00)
[2022-02-01] MEDS: FERROUS SULFATE 325 MG TABLET PO SCH (08:57)
[2022-02-01] MEDS: PANTOPRAZOLE 40 MG TABLET PO SCH (08:57)
[2022-02-01] MEDS: carvediloL 3.125 MG TABLET PO SCH ×2 (08:57→20:47)
[2022-02-01] MEDS: ASPIRIN EC 81 MG TABLET PO SCH (08:58)
[2022-02-01] MEDS: DOCUSATE SODIUM 100 MG CAPSULE PO SCH (08:58)
[2022-02-01] MEDS: MULTIVITAMIN (CENTRUM) TABLET PO SCH (08:59)
[2022-02-01] MEDS: CHOLECALCIFEROL 1,000 UNIT TABLET PO SCH (08:59)
[2022-02-01] MEDS: ASCORBIC ACID 500 MG TABLET PO SCH (08:59)
[2022-02-01] MEDS: CYANOCOBALAMIN 500 MCG TABLET PO SCH (09:19)
[2022-02-01] MEDS: NON-FORMULARY MEDICATION (Lysine 500 mg Tablet) PO SCH (10:45)
[2022-02-01] MEDS: CHLORHEXIDINE 0.12% ORAL RINSE 60 ML BOTTLE SWISH/SPIT SCH ×2 (10:46→20:47)
[2022-02-01] MEDS: ROSUVASTATIN 20 MG TABLET PO SCH (20:46)
[2022-02-02 04:46] LABS: Basophils # 0.1 10*3/uL (0.0-0.2); Basophils % 0.4 % (0.0-0.8); Eosinophils # 0.6 10*3/uL (0.0-0.87); Eosinophils % 4.6 % (0.00-10.9); Hematocrit 33.7 VOL% (35.7-47.0); Immature Granulocytes % 0.5 %; Immature Granulocytes Absolute 0.07 #; Lymphocytes # 4.5 10*3/uL (1.4-4.0); Mean Corpuscular HGB Conc 32.6 GM/DL (32-36); Mean Corpuscular Volume 93.9 FL (87-102); Mean Platelet Volume 11.7 FL (9.6-12.0); Monocytes # 1.1 10*3/uL (0.11-0.8); Neutrophils % 52.5 % (38.7-73.9); Platelet Count 207 T/CUMM (130-400); Red Blood Count 3.59 MC/CUMM (3.8-5.5); Red Cell Distribution Width 15.8 % (9.3-17.3); White Blood Count 13.3 T/CUMM (4-12)
[2022-02-02 05:14] LABS: Alanine Aminotransferase 54 U/L (13-56); Albumin 2.8 G/DL (3.4-5.0); Alkaline Phosphatase 75 U/L (45-117); Aspartate Amino Transferase 45 U/L (0-37); Bilirubin,Indirect 0.3 MG/DL (0.0-1.0); Blood Urea Nitrogen 16 MG/DL (7-18); Calcium 8.7 MG/DL (8.5-10.1); Carbon Dioxide 30 MMOL/L (21-32); Chloride 103 MMOL/L (98-107); Glucose 171 MG/DL (74-106); Osmolality,Calculated 279.7 MOS/KG (273-304); Potassium 3.2 MMOL/L (3.5-5.1); Sodium 138 MMOL/L (136-145); Total Protein 6.7 G/DL (6.4-8.2)
[2022-02-02 05:25] LABS: Calcium 8.1 MG/DL (8.5-10.1); Osmolality,Calculated 287.1 MOS/KG (273-304); Potassium 3.4 MMOL/L (3.5-5.1)
[2022-02-02] MEDS: LEVOTHYROXINE 75 MCG TABLET PO SCH (06:19)
[2022-02-02] MEDS ORDERED: POTASSIUM CHLORIDE 20 MEQ TABLET PO ONE (08:00)
[2022-02-02] MEDS: ASPIRIN EC 81 MG TABLET PO SCH (09:36)
[2022-02-02] MEDS: MULTIVITAMIN (CENTRUM) TABLET PO SCH (09:36)
[2022-02-02] MEDS: CHOLECALCIFEROL 1,000 UNIT TABLET PO SCH (09:37)
[2022-02-02] MEDS: PANTOPRAZOLE 40 MG TABLET PO SCH (09:37)
[2022-02-02] MEDS: ASCORBIC ACID 500 MG TABLET PO SCH (09:37)
[2022-02-02] MEDS: carvediloL 3.125 MG TABLET PO SCH ×2 (09:37→20:53)
[2022-02-02] MEDS: CYANOCOBALAMIN 500 MCG TABLET PO SCH (09:42)
[2022-02-02] MEDS: DOCUSATE SODIUM 100 MG CAPSULE PO SCH (09:42)
[2022-02-02] MEDS: FERROUS SULFATE 325 MG TABLET PO SCH (09:42)
[2022-02-02] MEDS: CHLORHEXIDINE 0.12% ORAL RINSE 60 ML BOTTLE SWISH/SPIT SCH ×2 (09:43→20:53)
[2022-02-02] MEDS: NON-FORMULARY MEDICATION (Lysine 500 mg Tablet) PO SCH (10:09)
[2022-02-02] MEDS: ACETAMINOPHEN 325 MG TABLET PO PRN ×2 (14:46→21:53)
[2022-02-02] MEDS: ROSUVASTATIN 20 MG TABLET PO SCH (20:53)
[2022-02-03 05:44] LABS: Alanine Aminotransferase 54 U/L (13-56); Albumin 2.6 G/DL (3.4-5.0); Alkaline Phosphatase 72 U/L (45-117); Aspartate Amino Transferase 42 U/L (0-37); Bilirubin,Indirect 0.3 MG/DL (0.0-1.0); Blood Urea Nitrogen 12 MG/DL (7-18); Calcium 9.1 MG/DL (8.5-10.1); Carbon Dioxide 28 MMOL/L (21-32); Chloride 106 MMOL/L (98-107); Glucose 132 MG/DL (74-106); Osmolality,Calculated 278.5 MOS/KG (273-304); Potassium 3.5 MMOL/L (3.5-5.1); Sodium 139 MMOL/L (136-145); Total Protein 6.6 G/DL (6.4-8.2)
[2022-02-03] MEDS: LEVOTHYROXINE 75 MCG TABLET PO SCH (05:46)
[2022-02-03] MEDS ORDERED: POTASSIUM CHLORIDE 20 MEQ TABLET PO ONE (08:00)
[2022-02-03 08:13] LABS: Basophils % 0.3 % (0.0-0.8); Eosinophils # 0.7 10*3/uL (0.0-0.87); Eosinophils % 5.4 % (0.00-10.9); Hematocrit 34.4 VOL% (35.7-47.0); Hemoglobin 11.3 GM/DL (12.0-16.0); Immature Granulocytes % 0.3 %; Immature Granulocytes Absolute 0.04 #; Lymphocytes # 3.1 10*3/uL (1.4-4.0); Mean Corpuscular HGB Conc 32.8 GM/DL (32-36); Mean Corpuscular Volume 93.7 FL (87-102); Mean Platelet Volume 11.2 FL (9.6-12.0); Monocytes # 1.1 10*3/uL (0.11-0.8); Platelet Count 211 T/CUMM (130-400); Red Blood Count 3.67 MC/CUMM (3.8-5.5); Red Cell Distribution Width 15.5 % (9.3-17.3); White Blood Count 11.9 T/CUMM (4-12)
[2022-02-03] MEDS: ACETAMINOPHEN 325 MG TABLET PO PRN (09:02)
[2022-02-03] MEDS: carvediloL 3.125 MG TABLET PO SCH (09:04)
[2022-02-03] MEDS: PANTOPRAZOLE 40 MG TABLET PO SCH (09:05)
[2022-02-03] MEDS: ASCORBIC ACID 500 MG TABLET PO SCH (09:05)
[2022-02-03] MEDS: ASPIRIN EC 81 MG TABLET PO SCH (09:05)
[2022-02-03] MEDS: MULTIVITAMIN (CENTRUM) TABLET PO SCH (09:05)
[2022-02-03] MEDS: DOCUSATE SODIUM 100 MG CAPSULE PO SCH (09:06)
[2022-02-03] MEDS: CHOLECALCIFEROL 1,000 UNIT TABLET PO SCH (09:07)
[2022-02-03] MEDS: CYANOCOBALAMIN 500 MCG TABLET PO SCH (09:07)
[2022-02-03] MEDS: FERROUS SULFATE 325 MG TABLET PO SCH (09:08)
[2022-02-03] MEDS: NON-FORMULARY MEDICATION (Lysine 500 mg Tablet) PO SCH (09:22)
[2022-02-03] MEDS: CHLORHEXIDINE 0.12% ORAL RINSE 60 ML BOTTLE SWISH/SPIT SCH (09:22)
[2022-02-03 13:02] VITALS: BP 115/75
== END 2022-02-03 12:51 | disposition home health service (06) | DRG 236 ==
LOC: N.TELES 13:27 → N.CVR 01-28 10:59 → N.TELES 01-29 09:24